=== PATIENT | female | born 1990 | race American Indian/Alaskan Native ===

== ENCOUNTER 2018-04-20 12:18 | Day surgery (SDC) | payer OTHER ==
[2018-04-20] MEDS ORDERED: NACL 0.9% 1000 ML 1,000 ML IV SCH (13:00)
[2018-04-20] MEDS ORDERED: WATER FOR IRRIG STERILE IR ONE (13:01)
[2018-04-20] MEDS ORDERED: DIPRIVAN 10 MG/ML IV ONE ×2 (14:06)
--- NOTE | 2018-04-20 14:11 | Anesthesia Consultation ---
Anesthesia Consult and Med Hx Date of service: 04/20/18 - Airway Anesthetic Teeth Evaluation: Chipped ROM Head & Neck: Adequate Mental/Hyoid Distance: Adequate Mallampati Class: Class II Intubation Access Assessment: Probably Good - Pre-Operative Health Status ASA Pre-Surgery Classification: ASA2 Proposed Anesthetic Plan: MAC - Pulmonary Hx Asthma: Yes
--- NOTE | 2018-04-20 14:11 | Anesthesia Day of Surgery ---
Anesthesia Day of Surgery - Day of Surgery Patient Examined: Yes Patient H&P Reviewed: Yes Patient is NPO: Yes
--- NOTE | 2018-04-20 14:25 | History and Physical Report ---
INDICATIONS: This is a 27-year-old -[place] female in otherwise good health, who has lately been having epigastric and mid abdominal pain in spite of being on omeprazole, which appears to be worsened with food. She does have a history of NSAID use. SOCIAL HISTORY: Denies history of smoking. History of alcohol use on occasion. No cardiac issues. No flu shots. ALLERGIES: No known allergies. MEDICATIONS: Include omeprazole, Claritin, Flonase, and Robitussin as well as Advil. PHYSICAL EXAMINATION: GENERAL: She is afebrile. VITAL SIGNS: Blood pressure is 119/71, pulse is 80, height is 5 feet 5 inches, weight is 213 pounds. HEENT: Shows no JVD. LUNGS: Clear to auscultation. CARDIOVASCULAR: Normal. ABDOMEN: Shows some mid abdominal tenderness and epigastric tenderness to palpation. There is no rebound. Bowel sounds present. No pedal edema. NEUROLOGIC: The patient is otherwise alert and oriented. ASSESSMENT: Epigastric and mild abdominal pain, peptic ulcer disease, NSAID use. Plan is to do an EGD at [facility] on 04/20/2018. JOB# [id number] DENZEL/NTS
--- NOTE | 2018-04-20 14:36 | Procedure Note ---
Date of procedure: 04/20/18 Pre-op diagnosis: Epigstric and Mid-abdominal Pain Post-op diagnosis: other (Moderate,Erosive Esophagitis/ Gastritis/ No Peptic Ulcer Disease noted/ patent Pylorus) Procedure: EGD with Biopsy Anesthesia: CAITIE Surgeon: BETSY FAJARDO Estimated blood loss: minimal Pathology: list Specimen disposition: to lab Condition: stable Disposition: same day (Avoid aspirin and NSAID for 5 days. continue treatment with PPI. Follow up in 1 to 2 weeks ([phone]).)
[2018-04-20 15:14] VITALS: BP 119/75
--- NOTE | 2018-04-20 15:36 | Operative Report ---
PROCEDURE: Esophagogastroduodenoscopy with biopsy. INDICATIONS: A 27-year-old -[place] female, who has lately been considered to be having some epigastric pain and mid abdominal pain in spite of being on PPI. She does have a history of NSAID use and EGD was done to assess for any associated peptic ulcer disease. DESCRIPTION OF PROCEDURE: Procedure was done after getting informed consent with MAC anesthesia. Instrument was passed through the hypopharynx into the esophagus, which showed moderately distal erosive esophagitis for documentation and biopsy was done. The stomach showed gastritis, but no ulcers were noted in the straight or the retroverted view. Gastritis was noted in the gastric antrum. Biopsies done from the gastric antrum, angularis incisura and gastric body to rule out for atrophic gastritis and for H. pylori. Pylorus was patent. Duodenum in the first and second portion appeared normal. There was minimal bleeding from the biopsy sites. No complications associated with the procedure. ASSESSMENT: Epigastric and midabdominal pain, moderate erosive esophagitis, gastritis. No peptic ulcer disease noted. Patent pylorus. PLAN: To continue treatment with PPI. Encouraged the patient to refrain from using aspirin and NSAID for the next 5 days and also to avoid alcohol. The patient claims that she does not smoke and the patient will also be asked to follow up in the office in 1-2 weeks' time. JOB# [id number] DENZEL/BAUTISTA
== END 2018-04-20 12:19 | disposition home or self-care (01) ==
LOC: GIO 12:18
DX: K29.70 Gastritis, unspecified, without bleeding (principal); K21.0 Gastro-esophageal reflux disease with esophagitis; J45.909 Unspecified asthma, uncomplicated; Z98.891 History of uterine scar from previous surgery; Z79.899 Other long term (current) drug therapy
CPT/HCPCS: 43239; 81025; 88305; 88312; 88341; 88342; J2704; J7030